=== PATIENT | female | born 1970 | race Caucasian/White ===

== ENCOUNTER 2016-08-01 13:31 | Emergency (ER) | payer MEDICAID, OTHER ==
[~2016-08-01] VITALS: Ht 157.5 cm; Wt 73.6 kg
[~2016-08-01 13:31] MED LIST: ACET325 PO; CALCTAB80 PO; CENTTAB9 PO; CHOL50006 PO; CIPR250T2 PO; FLUD.1 PO; HYDRO10 PO; ONDA4TAB7 PO; PROT40TA PO
[2016-08-01 13:34] VITALS: BP 106/54; PULSE 81; RESP 16; TEMP 98; O2SAT 92
[2016-08-01 14:08] LABS: BASOPHIL # 0.3 TH/MM3 (0-0.2); BASOPHIL % 3.1 % (0.0-2.0); EOSINOPHIL # 0.4 TH/MM3 (0-0.4); EOSINOPHIL % 4.3 % (0.0-4.0); HEMATOCRIT 39.6 % (35.0-46.0); HEMO FLAGS DIFF FINAL; LYMPH % 30.3 % (9.0-44.0); LYMPHOCYTE # 2.6 TH/MM3 (1.0-4.8); MEAN CELL VOLUME 92.1 FL (80.0-100.0); MEAN CORPUSCULAR HEMOGLOBIN 29.9 PG (27.0-34.0); MEAN CORPUSCULAR HGB CONC 32.5 % (32.0-36.0); MONO % 4.4 % (0.0-8.0); NEUT % 57.9 % (16.0-70.0); PLATELET COUNT 267 TH/MM3 (150-450); RED CELL DISTRIBUTION WIDTH 16.9 % (11.6-17.2); WHITE BLOOD COUNT 8.6 TH/MM3 (4.0-11.0)
[2016-08-01 14:21] LABS: BLOOD, URINE TRACE (NEG); COMMENT (UR) CULTURE INDICATED; CULTURE IF INDICATED CULTURE INDICATED; GLUCOSE,URINE NEG (NEG); KETONE, URINE 10 mg/dL (NEG); MUCUS URINE MANY /lpf (OCC); NITRITE,URINE NEG (NEG); PH, URINE 5.5 (5.0-8.5); SQUAMOUS EPITHELIAL CELL URINE 29 /hpf (0-5); TRANSITIONAL EPI CELLS, URINE 1 /hpf; URINE COLOR BROWN (YELLW/STRAW)
--- NOTE | 2016-08-01 14:27 | PD ---
HPI Chief Complaint: Abdominal Pain Time Seen by Provider: 14:18 Travel History International Travel<30 days: No Contact w/Intl Traveler<30days: No Traveled to known affect area: No History of Present Illness HPI This is a 45-year-old female who presents for evaluation of generalized weakness and nausea. Symptoms have been ongoing for 2 months. She reports that she saw her primary care physician Dr. Lawrence and on July 10 she was prescribed a seven-day course of Cipro. She used it for about 4 days and she has 5 pills left. She quit using it because she says that it was making her more nauseous. She now presents because the symptoms have been worsening. She also notes that her urine is orange in color. She was also prescribed azo but she reports that her urine was orange in color prior to using this medication. She does endorse occasional pelvic and epigastric discomfort as well. Denies vomiting, fevers or chills, flank pain, cough or congestion, rash, diarrhea or constipation. No other complaints. PFSH Past Medical History Medical History: Denies Significant Hx Asthma: No Blood Disorders: No Heart Rhythm Problems: Yes Cancer: No Cardiovascular Problems: No High Cholesterol: Yes Chemotherapy: No Chest Pain: No Congestive Heart Failure: No COPD: No Endocrine: Yes GERD: No Genitourinary: No Hepatitis: No Hiatal Hernia: No Hypertension: Yes Immune Disorder: No Kidney Stones: No Musculoskeletal: Yes Neurologic: Yes Psychiatric: No Reproductive: Yes Respiratory: No Myocardial Infarction: Yes Radiation Therapy: No Sleep Apnea: No Thyroid Disease: Yes Ulcer: No ?: Not Past Surgical History Appendectomy: Yes Body Medical Devices: NONE Cholecystectomy: No Gynecologic Surgery: Yes (HYSTERECTOMY 11 YRS AGO.) Hysterectomy: Yes Other Surgery: Yes Social History Alcohol Use: No Tobacco Use: No Substance Use: No Allergies-Medications (Allergen,Severity, Reaction): Coded Allergies: No Known Allergies (Verified , 08/01/16) Reported Meds & Prescriptions Reported Meds & Active Scripts Active Reported Levothyroxine (Levothyroxine Sodium) 25 Mcg Tab 25 Mcg PO DAILY Cortef (Hydrocortisone) 20 Mg Tab 20 Mg PO DAILY Take with food to decrease GI upset Review of Systems Except as stated in HPI: all other systems reviewed are Neg Physical Exam Narrative GENERAL: Well-developed well-nourished female in no acute distress SKIN: Warm and dry. HEAD: Atraumatic. Normocephalic. EYES: Pupils equal and round. No scleral icterus. No injection or drainage. ENT: No nasal bleeding or discharge. Mucous membranes pink and moist. NECK: Trachea midline. No JVD. CARDIOVASCULAR: Regular rate and rhythm. No murmur appreciated. RESPIRATORY: No accessory muscle use. Clear to auscultation. Breath sounds equal bilaterally. GASTROINTESTINAL: Abdomen soft, mild suprapubic and epigastric tenderness to palpation without guarding. Data Data Last Documented VS Vital Signs Date Time Temp Pulse Resp B/P Pulse Ox O2 Delivery O2 Flow Rate FiO2 08/01/16 13:34 98.0 81 16 106/54 92 Room Air Orders Complete Blood Count With Diff (08/01/16 13:37) Comprehensive Metabolic Panel (08/01/16 13:37) Urinalysis - C+S If Indicated (08/01/16 13:37) Iv Access Insert/Monitor (08/01/16 13:37) Lipase (08/01/16 13:37) Urine Culture (08/01/16 13:52) Ed Poc Ultrasound (08/01/16 ) Us Abdomen Gallbladder (08/01/16 ) Ceftriaxone Inj (Rocephin Inj) (08/01/16 16:15) Sodium Chlor 0.9% 1000 Ml Inj (Ns 1000 M (08/01/16 16:15) Ondansetron Inj (Zofran Inj) (08/01/16 16:15) Labs Laboratory Tests Test 08/01/16 08/01/16 13:52 13:53 Urine Color BROWN Urine Turbidity CLOUDY Urine pH 5.5 Urine Specific [place] 1.025 Urine Protein 100 mg/dL Urine Glucose (UA) NEG mg/dL Urine Ketones 10 mg/dL Urine Occult Blood TRACE Urine Nitrite NEG Urine Bilirubin NEG Urine Urobilinogen 4.0 MG/DL Urine Leukocyte Esterase LARGE Urine RBC 24 /hpf Urine WBC /hpf Urine Squamous Epithelial 29 /hpf Cells Urine Transitional Epithelial 1 /hpf Cells Urine Amorphous Sediment FEW Urine Mucus MANY /lpf Microscopic Urinalysis Comment CULTURE INDICATED White Blood Count 8.6 TH/MM3 Red Blood Count 4.30 MIL/MM3 Hemoglobin 12.9 GM/DL Hematocrit 39.6 % Mean Corpuscular Volume 92.1 FL Mean Corpuscular Hemoglobin 29.9 PG Mean Corpuscular Hemoglobin 32.5 % Concent Red Cell Distribution Width 16.9 % Platelet Count 267 TH/MM3 Mean Platelet Volume 8.8 FL Neutrophils (%) (Auto) 57.9 % Lymphocytes (%) (Auto) 30.3 % Monocytes (%) (Auto) 4.4 % Eosinophils (%) (Auto) 4.3 % Basophils (%) (Auto) 3.1 % Neutrophils # (Auto) 5.0 TH/MM3 Lymphocytes # (Auto) 2.6 TH/MM3 Monocytes # (Auto) 0.4 TH/MM3 Eosinophils # (Auto) 0.4 TH/MM3 Basophils # (Auto) 0.3 TH/MM3 CBC Comment DIFF FINAL Differential Comment Sodium Level 130 MEQ/L Potassium Level 3.3 MEQ/L Chloride Level 93 MEQ/L Carbon Dioxide Level 27.2 MEQ/L Anion Gap 10 MEQ/L Blood Urea Nitrogen 6 MG/DL Creatinine 0.98 MG/DL Estimat Glomerular Filtration 62 ML/MIN Rate Random Glucose 128 MG/DL Calcium Level 8.5 MG/DL Total Bilirubin 1.4 MG/DL Aspartate Amino Transf 123 U/L (AST/SGOT) Alanine Aminotransferase 41 U/L (ALT/SGPT) Alkaline Phosphatase 305 U/L Total Protein 7.6 GM/DL Albumin 3.5 GM/DL Lipase 85 U/L [facility] Medical Decision Making Medical Screen Exam Complete: Yes Emergency Medical Condition: Yes Medical Record Reviewed: Yes Differential Diagnosis Dehydration, electrolyte abnormality, medication side effect, UTI, pancreatitis Narrative Course 45-year-old female presents with 2 months of generalized weakness and nausea. The patient was initially seen in triage. She will be moved to a medical bed and one becomes available. Judson Toledo Aug 01, 2016 14:27
[2016-08-01 14:30] LABS: ANION GAP 10 MEQ/L (5-15); AST (GOT) 123 U/L (15-37); BICARBONATE 27.2 MEQ/L (21.0-32.0); BLOOD UREA NITROGEN 6 MG/DL (7-18); CHLORIDE 93 MEQ/L (98-107); GLOMERULAR FILTRATION RATE 62 ML/MIN (>89); POTASSIUM 3.3 MEQ/L (3.5-5.1); SODIUM (NA) 130 MEQ/L (136-145)
[2016-08-01 14:34] LABS: ALKALINE PHOSPHATASE 305 U/L (45-117); ALT (GPT) 41 U/L (10-53); TOTAL BILIRUBIN ADULT 1.4 MG/DL (0.2-1.0)
--- NOTE | 2016-08-01 15:56 | PD ---
Data Data Last Documented VS Vital Signs Date Time Temp Pulse Resp B/P Pulse Ox O2 Delivery O2 Flow Rate FiO2 08/01/16 13:34 98.0 81 16 106/54 92 Room Air Orders Complete Blood Count With Diff (08/01/16 13:37) Comprehensive Metabolic Panel (08/01/16 13:37) Urinalysis - C+S If Indicated (08/01/16 13:37) Iv Access Insert/Monitor (08/01/16 13:37) Lipase (08/01/16 13:37) Urine Culture (08/01/16 13:52) Ed Poc Ultrasound (08/01/16 ) Us Abdomen Gallbladder (08/01/16 ) Ceftriaxone Inj (Rocephin Inj) (08/01/16 16:15) Sodium Chlor 0.9% 1000 Ml Inj (Ns 1000 M (08/01/16 16:15) Ondansetron Inj (Zofran Inj) (08/01/16 16:15) Labs Laboratory Tests Test 08/01/16 08/01/16 13:52 13:53 Urine Color BROWN Urine Turbidity CLOUDY Urine pH 5.5 Urine Specific [place] 1.025 Urine Protein 100 mg/dL Urine Glucose (UA) NEG mg/dL Urine Ketones 10 mg/dL Urine Occult Blood TRACE Urine Nitrite NEG Urine Bilirubin NEG Urine Urobilinogen 4.0 MG/DL Urine Leukocyte Esterase LARGE Urine RBC 24 /hpf Urine WBC /hpf Urine Squamous Epithelial 29 /hpf Cells Urine Transitional Epithelial 1 /hpf Cells Urine Amorphous Sediment FEW Urine Mucus MANY /lpf Microscopic Urinalysis Comment CULTURE INDICATED White Blood Count 8.6 TH/MM3 Red Blood Count 4.30 MIL/MM3 Hemoglobin 12.9 GM/DL Hematocrit 39.6 % Mean Corpuscular Volume 92.1 FL Mean Corpuscular Hemoglobin 29.9 PG Mean Corpuscular Hemoglobin 32.5 % Concent Red Cell Distribution Width 16.9 % Platelet Count 267 TH/MM3 Mean Platelet Volume 8.8 FL Neutrophils (%) (Auto) 57.9 % Lymphocytes (%) (Auto) 30.3 % Monocytes (%) (Auto) 4.4 % Eosinophils (%) (Auto) 4.3 % Basophils (%) (Auto) 3.1 % Neutrophils # (Auto) 5.0 TH/MM3 Lymphocytes # (Auto) 2.6 TH/MM3 Monocytes # (Auto) 0.4 TH/MM3 Eosinophils # (Auto) 0.4 TH/MM3 Basophils # (Auto) 0.3 TH/MM3 CBC Comment DIFF FINAL Differential Comment Sodium Level 130 MEQ/L Potassium Level 3.3 MEQ/L Chloride Level 93 MEQ/L Carbon Dioxide Level 27.2 MEQ/L Anion Gap 10 MEQ/L Blood Urea Nitrogen 6 MG/DL Creatinine 0.98 MG/DL Estimat Glomerular Filtration 62 ML/MIN Rate Random Glucose 128 MG/DL Calcium Level 8.5 MG/DL Total Bilirubin 1.4 MG/DL Aspartate Amino Transf 123 U/L (AST/SGOT) Alanine Aminotransferase 41 U/L (ALT/SGPT) Alkaline Phosphatase 305 U/L Total Protein 7.6 GM/DL Albumin 3.5 GM/DL Lipase 85 U/L [facility] Supervised Visit with BRAD: Yes Interpretation(s) No leukocytosis Mild hyponatremia Chronic transaminitis, patient has been told in the past that she has liver problems Differential Diagnosis Urinary tract infection, pyelonephritis, cholecystitis, electrolyte abnormality , dehydration Narrative Course This is a 45-year-old female who presents to the emergency department with malaise, nausea and vomiting and fevers that have been going on for 1 month. She has symptoms of urinary tract infection. She's had persistent UTIs in the past. Her doctor put her on Cipro but she couldn't tolerate it because of the side effects. Here her labs demonstrate some dehydration. She has some worsening abnormal liver function tests and she was tender in the right upper quadrant. I performed a right upper quadrant ultrasound the bedside and I had her gallbladder wall appeared thick and I was concerned for some possible pericholecystic fluid. I obtained a formal ultrasound. Case was signed out to Dr. Thompson. If the patient's ultrasound is reassuring at think she can be discharged on Keflex. Procedures Procedure Narrative Right upper quadrant ultrasound: Gallbladder wall thickness was 0.46 L, common bile duct was 0.41 cm, pericholecystic fluid is appreciated and patient has tenderness with exam Shyla Ibrahim MD Aug 01, 2016 15:56
[2016-08-01] MEDS ORDERED: SODIUM CHLOR 0.9% 1000 ML INJ 1,000 ML IV SCH (16:15)
[2016-08-01] MEDS ORDERED: cefTRIAXone INJ 1,000 MG in SODIUM CHLORIDE 0.9% INJ 100 ML IV ONE (16:15)
[2016-08-01] MEDS ORDERED: ONDANSETRON HCL 4 MG/2 ML VIAL IV ONE (16:15)
[2016-08-01] MEDS ORDERED: CORT20TA PO (16:25)
[2016-08-01] MEDS ORDERED: LEVO25TA4 PO (16:25)
[2016-08-01 17:25] VITALS: BP 110/50; PULSE 80; RESP 20; O2SAT 95
--- NOTE | 2016-08-01 18:16 | PD ---
Physical Exam Date Seen by Provider: Aug 01, 2016 Data Data Last Documented VS Vital Signs Date Time Temp Pulse Resp B/P Pulse Ox O2 Delivery O2 Flow Rate FiO2 08/01/16 20:38 74 16 112/65 95 08/01/16 13:34 98.0 Room Air Orders Complete Blood Count With Diff (08/01/16 13:37) Comprehensive Metabolic Panel (08/01/16 13:37) Urinalysis - C+S If Indicated (08/01/16 13:37) Iv Access Insert/Monitor (08/01/16 13:37) Lipase (08/01/16 13:37) Urine Culture (08/01/16 13:52) Ed Poc Ultrasound (08/01/16 ) Us Abdomen Gallbladder (08/01/16 ) Ceftriaxone Inj (Rocephin Inj) (08/01/16 16:15) Sodium Chlor 0.9% 1000 Ml Inj (Ns 1000 M (08/01/16 16:15) Ondansetron Inj (Zofran Inj) (08/01/16 16:15) Labs Laboratory Tests Test 08/01/16 08/01/16 13:52 13:53 Urine Color BROWN Urine Turbidity CLOUDY Urine pH 5.5 Urine Specific [place] 1.025 Urine Protein 100 mg/dL Urine Glucose (UA) NEG mg/dL Urine Ketones 10 mg/dL Urine Occult Blood TRACE Urine Nitrite NEG Urine Bilirubin NEG Urine Urobilinogen 4.0 MG/DL Urine Leukocyte Esterase LARGE Urine RBC 24 /hpf Urine WBC /hpf Urine Squamous Epithelial 29 /hpf Cells Urine Transitional Epithelial 1 /hpf Cells Urine Amorphous Sediment FEW Urine Mucus MANY /lpf Microscopic Urinalysis Comment CULTURE INDICATED White Blood Count 8.6 TH/MM3 Red Blood Count 4.30 MIL/MM3 Hemoglobin 12.9 GM/DL Hematocrit 39.6 % Mean Corpuscular Volume 92.1 FL Mean Corpuscular Hemoglobin 29.9 PG Mean Corpuscular Hemoglobin 32.5 % Concent Red Cell Distribution Width 16.9 % Platelet Count 267 TH/MM3 Mean Platelet Volume 8.8 FL Neutrophils (%) (Auto) 57.9 % Lymphocytes (%) (Auto) 30.3 % Monocytes (%) (Auto) 4.4 % Eosinophils (%) (Auto) 4.3 % Basophils (%) (Auto) 3.1 % Neutrophils # (Auto) 5.0 TH/MM3 Lymphocytes # (Auto) 2.6 TH/MM3 Monocytes # (Auto) 0.4 TH/MM3 Eosinophils # (Auto) 0.4 TH/MM3 Basophils # (Auto) 0.3 TH/MM3 CBC Comment DIFF FINAL Differential Comment Sodium Level 130 MEQ/L Potassium Level 3.3 MEQ/L Chloride Level 93 MEQ/L Carbon Dioxide Level 27.2 MEQ/L Anion Gap 10 MEQ/L Blood Urea Nitrogen 6 MG/DL Creatinine 0.98 MG/DL Estimat Glomerular Filtration 62 ML/MIN Rate Random Glucose 128 MG/DL Calcium Level 8.5 MG/DL Total Bilirubin 1.4 MG/DL Aspartate Amino Transf 123 U/L (AST/SGOT) Alanine Aminotransferase 41 U/L (ALT/SGPT) Alkaline Phosphatase 305 U/L Total Protein 7.6 GM/DL Albumin 3.5 GM/DL Lipase 85 U/L [facility] Medical Record Reviewed: Yes Supervised Visit with BRAD: Yes Interpretation(s) Vital Signs Date Time Temp Pulse Resp B/P Pulse Ox O2 Delivery O2 Flow Rate FiO2 08/01/16 13:34 98.0 81 16 106/54 92 Room Air Laboratory Tests Test 08/01/16 08/01/16 13:52 13:53 Urine Color BROWN (YELLW/STRAW) Urine Turbidity CLOUDY (CLEAR) Urine pH 5.5 (5.0-8.5) Urine Specific [place] 1.025 (1.002-1.035) Urine Protein 100 mg/dL (NEG-TRACE) Urine Glucose (UA) NEG mg/dL (NEG) Urine Ketones 10 mg/dL (NEG) Urine Occult Blood TRACE (NEG) Urine Nitrite NEG (NEG) Urine Bilirubin NEG (NEG) Urine Urobilinogen 4.0 MG/DL (LESS THAN 2.0) Urine Leukocyte Esterase LARGE (NEG) Urine RBC 24 /hpf (0-3) Urine WBC /hpf (0-5) Urine Squamous Epithelial 29 /hpf (0-5) Cells Urine Transitional Epithelial 1 /hpf (NONE) Cells Urine Amorphous Sediment FEW Urine Mucus MANY /lpf (OCC) Microscopic Urinalysis Comment CULTURE INDICATED White Blood Count 8.6 TH/MM3 (4.0-11.0) Red Blood Count 4.30 MIL/MM3 (4.00-5.30) Hemoglobin 12.9 GM/DL (11.6-15.3) Hematocrit 39.6 % (35.0-46.0) Mean Corpuscular Volume 92.1 FL (80.0-100.0) Mean Corpuscular Hemoglobin 29.9 PG (27.0-34.0) Mean Corpuscular Hemoglobin 32.5 % Concent (32.0-36.0) Red Cell Distribution Width 16.9 % (11.6-17.2) Platelet Count 267 TH/MM3 (150-450) Mean Platelet Volume 8.8 FL (7.0-11.0) Neutrophils (%) (Auto) 57.9 % (16.0-70.0) Lymphocytes (%) (Auto) 30.3 % (9.0-44.0) Monocytes (%) (Auto) 4.4 % (0.0-8.0) Eosinophils (%) (Auto) 4.3 % (0.0-4.0) Basophils (%) (Auto) 3.1 % (0.0-2.0) Neutrophils # (Auto) 5.0 TH/MM3 (1.8-7.7) Lymphocytes # (Auto) 2.6 TH/MM3 (1.0-4.8) Monocytes # (Auto) 0.4 TH/MM3 (0-0.9) Eosinophils # (Auto) 0.4 TH/MM3 (0-0.4) Basophils # (Auto) 0.3 TH/MM3 (0-0.2) CBC Comment DIFF FINAL Differential Comment Sodium Level 130 MEQ/L (136-145) Potassium Level 3.3 MEQ/L (3.5-5.1) Chloride Level 93 MEQ/L (98-107) Carbon Dioxide Level 27.2 MEQ/L (21.0-32.0) Anion Gap 10 MEQ/L (5-15) Blood Urea Nitrogen 6 MG/DL (7-18) Creatinine 0.98 MG/DL (0.50-1.00) Estimat Glomerular Filtration 62 ML/MIN (>89) Rate Random Glucose 128 MG/DL (74-106) Calcium Level 8.5 MG/DL (8.5-10.1) Total Bilirubin 1.4 MG/DL (0.2-1.0) Aspartate Amino Transf 123 U/L (15-37) (AST/SGOT) Alanine Aminotransferase 41 U/L (10-53) (ALT/SGPT) Alkaline Phosphatase 305 U/L (45-117) Total Protein 7.6 GM/DL (6.4-8.2) Albumin 3.5 GM/DL (3.4-5.0) Lipase 85 U/L (73-393) Microbiology Date/Time Procedure Status Source Growth 08/01/16 13:52 Urine Culture Received Urine Clean Catch Pending Differential Diagnosis Acute cholecystitis, pyelonephritis, UTI, dehydration, hepatitis, transaminitis Narrative Course Patient was signed out to me by Dr. Ibrahim at change of shift. Please see previous providers workup as well as history of present illness for full narrative course. I was asked to follow-up with patient's right upper quadrant ultrasound as there was concerns for possible pericholecystic fluid on patient' s bedside ultrasound. Patient is a 45-year-old female who presents to emergency room with complaints of nausea vomiting and urinary tract symptoms which have been ongoing for the past month. Patient reports that she has been on ciprofloxacin for her urinary tract infections but up taking them because she could not tolerate the side effects of the medications. Patient reports that she has increased pain to the right upper abdomen, patient here for evaluation of right upper quadrant pain. Patient does have transaminitis on her lab work, right upper quadrant ultrasound pending at this time. CBC & BMP Diagram 08/01/16 13:53 Last Impressions Gall Bladder Ultrasound 08/01/16 0000 Signed Impressions: Service Date/Time: Saturday, August 01, 2016 17:36 - CONCLUSION: 1. The liver is slightly echogenic which maybe due to fatty infiltration and or hepatocellular dysfunction. 2. Sludge within the gallbladder and nonspecific thickening of the gallbladder wall. Dustin Mcgraw MD Patient reevaluated, patient reports that she is feeling much better. Patient does not Have any abdominal pain at this time. I did review all the labs and all the studies as well as all labs and all findings with patient and her son in detail. Gallbladder ultrasound with sludge within the gallbladder and nonspecific thickening of the gallbladder wall. I did review with patient possibility of acute cholecystitis, patient reports that she has no pain at this time. Patient reports that she does feel better and would like to be discharged. I discussed need for her to follow-up with Gen. surgery as outpatient. Signs and symptoms of when to return to the emergency room including fevers and chills and right upper quadrant pain was discussed with patient in detail. Patient will return to the emergency room should she develop any of the symptoms. Patient was given a copy of her lab work and US reports at discharge Diagnosis Primary Impression: Abdominal pain Qualified Code: R10.84 - Generalized abdominal pain Additional Impressions: Transaminitis UTI (urinary tract infection) Qualified Code: N30.01 - Acute cystitis with hematuria Hypokalemia Hyponatremia Referrals: Sidney Starr MD Patient Instructions: General Instructions Additional Instruction: Please provide patient with a copy of her lab work and ultrasound report at discharge Please return to emergency room should he develop any fevers, chills or return of abdominal pain. Please follow-up with cultures from today Please call your primary care doctor for earliest follow-up Please call your general surgeon first thing in the morning for earliest follow- up Med/Other Pt SpecificInfo: Prescription(s) given Scripts Cephalexin (Keflex)500 Mg [id number] Mg PO Q6H 7 Days Ref 0 Prov:Isidra Thompson DO 08/01/16 Disposition: 01 DISCHARGE HOME Condition: Stable Isidra Thompson DO Aug 01, 2016 18:16
--- NOTE | 2016-08-01 20:07 | RADRPT ---
EXAM DATE/TIME: 08/01/2016 17:36 [facility] COMPARISON: No previous studies available for comparison. INDICATIONS : Right upper quadrant pain. MEDICAL HISTORY : Hypercholesterolemia. Hypertension. Thyroid disease. Head trauma. Heart attack. Irregular heartbeat . Jaundice. Measles. Blood transfusion. SURGICAL HISTORY : Hysterectomy. Appendectomy. Right ankle surgery. ENCOUNTER: Initial ACUITY: 1 day PAIN SCORE: 4/10 LOCATION: Right upper quadrant MEASUREMENTS: LIVER: 21.1 cm length COMMON DUCT: 4 mm RIGHT KIDNEY: 11.4 x 5.4 x 4.6 cm FINDINGS: The liver is slightly echogenic which maybe due to fatty infiltration and or hepatocellular dysfuncti on. The gallbladder has sludge within it without definite stones and slight gallbladder wall thickeni ng measuring 6-7 mm with slight pericholecystic fluid. The visualized head of the pancreas, and righ t kidney appear grossly intact for technique. CONCLUSION: 1. The liver is slightly echogenic which maybe due to fatty infiltration and or hepatocellular dysfun ction. 2. Sludge within the gallbladder and nonspecific thickening of the gallbladder wall. Dustin Mcgraw MD on August 01, 2016 at 20:04 Board Certified Radiologist. This report was verified electronically.
[2016-08-01 20:38] VITALS: BP 112/65
[2016-08-01] MEDS ORDERED: CEPH-460 PO (20:50)
== END 2016-08-01 21:05 | disposition home or self-care (01) ==
LOC: NEPA 13:31
DX: R10.9 Unspecified abdominal pain (principal); R74.0 Nonspecific elevation of levels of transaminase and lactic acid dehydrogenase [LDH]; N39.0 Urinary tract infection, site not specified; E87.6 Hypokalemia; E87.1 Hypo-osmolality and hyponatremia; B96.89 Other specified bacterial agents as the cause of diseases classified elsewhere; I10 Essential (primary) hypertension; I25.2 Old myocardial infarction
CPT/HCPCS: 76705; 80053; 81001; 83690; 85025; 87086; 96374; 96375; 99284; J0696; J2405; J7030

== ENCOUNTER 2016-08-25 13:29 | Inpatient (IN) | payer OTHER ==
[~2016-08-25] VITALS: Ht 157.5 cm; Wt 79.0 kg
[2016-08-25] VITALS (10 sets, daily range): BP systolic 91–115; BP diastolic 50–60; PULSE 78–90; RESP 17–28; TEMP 98.2–98.6; O2SAT 84–99
[~2016-08-25 13:29] MED LIST changes: -ACET325 PO; -CALCTAB80 PO; -CENTTAB9 PO; +CEPH-460 PO; -CHOL50006 PO; -CIPR250T2 PO; +CORT20TA PO; -FLUD.1 PO; -HYDRO10 PO; +LEVO25TA4 PO; -ONDA4TAB7 PO; -PROT40TA PO
[2016-08-25] MEDS ORDERED: RESP: ALBUTEROL 2.5 MG/IPRATROPIUM 0.5 MG NEB (SCH) INH (14:00)
[2016-08-25] MEDS ORDERED: SODIUM CHLORIDE 0.9% FLUSH 10 ML FLUSH IVF PRN (14:00)
--- NOTE | 2016-08-25 14:03 | PD ---
HPI Chief Complaint: Dizziness Time Seen by Provider: 14:03 Travel History International Travel<30 days: No Contact w/Intl Traveler<30days: No Traveled to known affect area: No History of Present Illness HPI 45 year old female presents to the emergency department for evaluation of vomiting, dizziness x 2 days. She states she had a urinary tract infection one month ago and was treated with antibiotics, but her symptoms remain including dysuria, urinary frequency, urinary urgency. She does report a cough for approximately 1-2 weeks and associated shortness of breath. She denies any chest pain. She denies any vomiting today. She does report decreased appetite. She denies any recent surgery/travel, no hemoptysis, no history of DVT/PE, no edema. She denies any tobacco use. She states she was taking hydrocortisone for "gland issues", but is done with this. She only takes levothyroxine for hypothyroidism. She denies any fevers. Oxygen saturation is 83-84% on room air upon arrival to room. PFSH Past Medical History Asthma: No Blood Disorders: No Heart Rhythm Problems: Yes Cancer: No Cardiovascular Problems: No High Cholesterol: Yes Chemotherapy: No Chest Pain: No Congestive Heart Failure: No COPD: No Endocrine: Yes GERD: No Genitourinary: No Hepatitis: No Hiatal Hernia: No Hypertension: Yes Immune Disorder: No Kidney Stones: No Musculoskeletal: Yes Neurologic: Yes Psychiatric: No Reproductive: Yes Respiratory: No Myocardial Infarction: Yes Radiation Therapy: No Sleep Apnea: No Thyroid Disease: Yes Ulcer: No ?: Not Past Surgical History Appendectomy: Yes Body Medical Devices: NONE Cholecystectomy: No Gynecologic Surgery: Yes (HYSTERECTOMY 11 YRS AGO.) Hysterectomy: Yes Other Surgery: Yes Social History Alcohol Use: No Tobacco Use: No Substance Use: No Allergies-Medications (Allergen,Severity, Reaction): Coded Allergies: No Known Allergies (Verified , 08/25/16) Reported Meds & Prescriptions Reported Meds & Active Scripts Active Reported Levothyroxine (Levothyroxine Sodium) 25 Mcg Tab 25 Mcg PO DAILY Review of Systems Except as stated in HPI: all other systems reviewed are Neg Physical Exam Narrative GENERAL: Well-nourished, well-developed female patient, afebrile. Oxygen saturation is 83-84% on room air. SKIN: Focused skin assessment warm/dry. HEAD: Normocephalic. Atraumatic. EYES: No scleral icterus. No injection or drainage. NECK: Supple, trachea midline. No JVD or lymphadenopathy. CARDIOVASCULAR: Regular rate and rhythm without murmurs, gallops, or rubs. RESPIRATORY: Breath sounds equal bilaterally. No accessory muscle use. Lung sounds diminished with expiratory wheezes noted throughout. GASTROINTESTINAL: Abdomen soft, non-tender, nondistended. No abdominal pain to palpation. MUSCULOSKELETAL: No cyanosis, or edema. BACK: Nontender without obvious deformity. No CVA tenderness. Data Data Last Documented VS Vital Signs Date Time Temp Pulse Resp B/P Pulse Ox O2 Delivery O2 Flow Rate FiO2 08/25/16 15:35 81 24 91/50 98 Nasal Cannula 3 08/25/16 13:56 98.6 Orders Complete Blood Count With Diff (08/25/16 14:00) Basic Metabolic Panel (Bmp) (08/25/16 14:00) Magnesium (Mg) (08/25/16 14:00) Ckmb (Isoenzyme) Profile (08/25/16 14:00) Troponin I (08/25/16 14:00) Urinalysis - C+S If Indicated (08/25/16 14:00) Influenzae A/B Antigen (08/25/16 14:00) Blood Culture (08/25/16 14:00) Iv Access Insert/Monitor (08/25/16 14:00) Electrocardiogram (08/25/16 14:00) Ecg Monitoring (08/25/16 14:00) Oximetry (08/25/16 14:00) Oxygen Administration (08/25/16 14:00) Chest, Single Ap (08/25/16 14:00) Sodium Chloride 0.9% Flush (Ns Flush) (08/25/16 14:00) Albuterol-Ipratropium Neb (Duoneb Neb) (08/25/16 14:00) Lactic Acid Sepsis Protocol (08/25/16 14:00) Methylprednisolone So Succ Inj (Solumedr (08/25/16 14:15) Albuterol-Ipratropium Neb (Duoneb Neb) (08/25/16 14:15) Ct Pulmonary Angiogram (08/25/16 ) CKMB (08/25/16 14:00) CKMB% (08/25/16 14:00) Sodium Chlor 0.9% 1000 Ml Inj (Ns 1000 M (08/25/16 16:00) Iohexol 350 Inj (Omnipaque 350 Inj) (08/25/16 16:24) Urine Culture (08/25/16 15:45) Hepatic Functional Panel (08/25/16 16:50) Ceftriaxone Inj (Rocephin Inj) (08/25/16 17:15) Sodium Chlor 0.9% 1000 Ml Inj (Ns 1000 M (08/25/16 17:15) Labs Laboratory Tests Test 08/25/16 08/25/16 08/25/16 14:00 14:05 15:45 White Blood Count 6.5 TH/MM3 Red Blood Count 4.33 MIL/MM3 Hemoglobin 13.6 GM/DL Hematocrit 39.5 % Mean Corpuscular Volume 91.2 FL Mean Corpuscular Hemoglobin 31.5 PG Mean Corpuscular Hemoglobin 34.5 % Concent Red Cell Distribution Width 17.6 % Platelet Count 241 TH/MM3 Mean Platelet Volume 8.7 FL Neutrophils (%) (Auto) 48.0 % Lymphocytes (%) (Auto) 40.0 % Monocytes (%) (Auto) 4.4 % Eosinophils (%) (Auto) 6.1 % Basophils (%) (Auto) 1.5 % Neutrophils # (Auto) 3.1 TH/MM3 Lymphocytes # (Auto) 2.6 TH/MM3 Monocytes # (Auto) 0.3 TH/MM3 Eosinophils # (Auto) 0.4 TH/MM3 Basophils # (Auto) 0.1 TH/MM3 CBC Comment DIFF FINAL Differential Comment Sodium Level 128 MEQ/L Potassium Level 3.4 MEQ/L Chloride Level 94 MEQ/L Carbon Dioxide Level 24.6 MEQ/L Anion Gap 9 MEQ/L Blood Urea Nitrogen 5 MG/DL Creatinine 1.00 MG/DL Estimat Glomerular Filtration 61 ML/MIN Rate Random Glucose 117 MG/DL Calcium Level 9.0 MG/DL Magnesium Level 2.2 MG/DL Total Creatine Kinase 1509 U/L Creatine Kinase MB 4.7 NG/ML Creatine Kinase MB % 0.3 % Troponin I LESS THAN 0.02 NG/ML Lactic Acid Level 1.2 mmol/L Urine Color ORANGE Urine Turbidity HAZY Urine pH 6.0 Urine Specific Starlight 1.029 Urine Protein 30 mg/dL Urine Glucose (UA) NEG mg/dL Urine Ketones 40 mg/dL Urine Occult Blood NEG Urine Nitrite NEG Urine Bilirubin NEG Urine Urobilinogen 8.0 MG/DL Urine Leukocyte Esterase LARGE Urine RBC 6 /hpf Urine WBC 167 /hpf Urine Squamous Epithelial 3 /hpf Cells Urine Mucus MANY /lpf Microscopic Urinalysis Comment CULTURE INDICATED MDM Medical Decision Making Medical Screen Exam Complete: Yes Emergency Medical Condition: Yes Medical Record Reviewed: Yes Interpretation(s) Last Impressions Chest X-Ray 08/25/16 1400 Signed Impressions: Service Date/Time: Thursday, August 25, 2016 14:42 - CONCLUSION: 1. Minimal basilar atelectasis. No acute findings. Stable sclerotic deformity at the left glenoid. Srinivas Menezes MD CT [facility] - CONCLUSION: 1. Negative for pulmonary embolus. Dependent atelectasis in both lungs. Differential Diagnosis pneumonia vs. electrolyte abnormality vs. ACS vs. PE Narrative Course 45 year old female presents to the emergency department for vomiting, dizziness , cough, shortness of breath. EKG, CBC, BMP, Magnesium, CK, troponin, UA, UPT, lactic acid, blood cultures x 2, influenza are ordered and pending. Patient is given duoneb x3 and solumedrol 125 mg IV. Chest x-ray is ordered and pending. EKG shows SR, HR 72, no acute ST changes. CBC shows no acute abnormality. BMP shows hyponatremia of 128, hypokalemia of 3.4. Magnesium is 2.2. CK is elevated at 1509. Troponin is less than 0.02. Lactic acid is 1.2. UA shows 8.0 Urobilinogen, large leukocyte esterase, 167 WBC. Influenza is negative. Chest x-ray shows minimal basilar atelectasis. No acute findings. Stable sclerotic deformity at the left glenoid. CT pulmonary angiogram is ordered and is negative for PE. Patient is given 2 L NS IV bolus and Rocephin [address] [facility] is paged for admission. Dr. Rinaldi accepted admission. Diagnosis Primary Impression: Hypoxia Additional Impressions: Rhabdomyolysis Qualified Code: M62.82 - Non-traumatic rhabdomyolysis UTI (urinary tract infection) Qualified Code: N30.00 - Acute cystitis without hematuria Admitting Information Admitting Physician Requests: Admit Tavia Burroughs Aug 25, 2016 14:03
[2016-08-25] MEDS ORDERED: methylPREDNISolone SOD SUCC 125 MG/2 ML VIAL IVP ONE (14:15)
[2016-08-25 14:32] LABS: AUTOMATED NEUTROPHIL # 3.1 TH/MM3 (1.8-7.7); BASOPHIL # 0.1 TH/MM3 (0-0.2); BASOPHIL % 1.5 % (0.0-2.0); EOSINOPHIL # 0.4 TH/MM3 (0-0.4); EOSINOPHIL % 6.1 % (0.0-4.0); HEMATOCRIT 39.5 % (35.0-46.0); HEMO FLAGS DIFF FINAL; LYMPHOCYTE # 2.6 TH/MM3 (1.0-4.8); MEAN CELL VOLUME 91.2 FL (80.0-100.0); MEAN CORPUSCULAR HEMOGLOBIN 31.5 PG (27.0-34.0); MEAN CORPUSCULAR HGB CONC 34.5 % (32.0-36.0); MONO % 4.4 % (0.0-8.0); PLATELET COUNT 241 TH/MM3 (150-450); RED BLOOD COUNT 4.33 MIL/MM3 (4.00-5.30); RED CELL DISTRIBUTION WIDTH 17.6 % (11.6-17.2); WHITE BLOOD COUNT 6.5 TH/MM3 (4.0-11.0)
[2016-08-25] MEDS: RESP: ALBUTEROL 2.5 MG/IPRATROPIUM 0.5 MG NEB (SCH) INH (14:43)
--- NOTE | 2016-08-25 15:25 | RADRPT ---
EXAM DATE/TIME: 08/25/2016 14:42 [facility] COMPARISON: CHEST SINGLE AP, June 21, 2015, 21:02. INDICATIONS : Shortness of breath. MEDICAL HISTORY : None. SURGICAL HISTORY : None. ENCOUNTER: Initial ACUITY: 1 day PAIN SCORE: 0/10 LOCATION: chest FINDINGS: A single view of the chest demonstrates the lungs to be symmetrically aerated without evidence of mas s, infiltrate or effusion. Minimal basilar atelectasis. The cardiomediastinal contours are unremarkab le. Osseous structures are intact. CONCLUSION: 1. Minimal basilar atelectasis. No acute findings. Stable sclerotic deformity at the left glenoid. Srinivas Menezes MD on August 25, 2016 at 15:20 Board Certified Radiologist. This report was verified electronically.
[2016-08-25 15:34] LABS: ANION GAP 9 MEQ/L (5-15); BICARBONATE 24.6 MEQ/L (21.0-32.0); BLOOD UREA NITROGEN 5 MG/DL (7-18); CHLORIDE 94 MEQ/L (98-107); GLOMERULAR FILTRATION RATE 61 ML/MIN (>89); MAGNESIUM 2.2 MG/DL (1.5-2.5); POTASSIUM 3.4 MEQ/L (3.5-5.1); SODIUM (NA) 128 MEQ/L (136-145)
[2016-08-25 15:48] LABS: CREATINE KINASE 1509 U/L (26-192)
[2016-08-25 16:00] LABS: CKMB 4.7 NG/ML (0.5-3.6)
[2016-08-25] MEDS ORDERED: SODIUM CHLOR 0.9% 1000 ML INJ 1,000 ML IV ONE ×2 (16:00→17:15)
[2016-08-25] MEDS ORDERED: IOHEXOL 350 MG/ML 10 ML VIAL (for RAD DIAG) IV ONE (16:24)
[2016-08-25 16:35] LABS: BLOOD, URINE NEG (NEG); COMMENT (UR) CULTURE INDICATED; CULTURE IF INDICATED CULTURE INDICATED; GLUCOSE,URINE NEG (NEG); KETONE, URINE 40 mg/dL (NEG); MUCUS URINE MANY /lpf (OCC); NITRITE,URINE NEG (NEG); SQUAMOUS EPITHELIAL CELL URINE 3 /hpf (0-5)
[2016-08-25 16:36] LABS: URINE COLOR ORANGE (YELLW/STRAW)
--- NOTE | 2016-08-25 17:01 | RADRPT ---
EXAM DATE/TIME: 08/25/2016 16:26 [facility] COMPARISON: No previous studies available for comparison. INDICATIONS : Shortness of breath for two days. IV CONTRAST: 70 cc Omnipaque 350 (iohexol) IV RADIATION DOSE: 23.27 CTDIvol (mGy) MEDICAL HISTORY : Hypothyroidism. SURGICAL HISTORY : Hysterectomy. Appendectomy. ENCOUNTER: Initial ACUITY: 1 day PAIN SCALE: 0/10 LOCATION: Bilateral chest TECHNIQUE: Volumetric scanning of the chest was performed using a pulmonary embolism protocol MIP images were re constructed. Using automated exposure control and adjustment of the mA and/or kV according to patien t size, radiation dose was kept as low as reasonably achievable to obtain optimal diagnostic quality images. FINDINGS: No filling defects to suggest pulmonary embolic disease. Dependent atelectasis in both lungs. No effu phuong or pneumothorax. No adenopathy. No incidental note of aberrant right subclavian artery passing r etroesophageal. No acute findings in the upper abdomen. CONCLUSION: 1. Negative for pulmonary embolus. Dependent atelectasis in both lungs. Srinivas Menezes MD on August 25, 2016 at 16:56 Board Certified Radiologist. This report was verified electronically.
[2016-08-25] MEDS ORDERED: cefTRIAXone INJ 1,000 MG in SODIUM CHLORIDE 0.9% INJ 100 ML IV ONE (17:15)
[2016-08-25] MEDS ORDERED: ONDANSETRON HCL 4 MG/2 ML VIAL IVP PRN (17:45)
[2016-08-25] MEDS ORDERED: NALOXONE HCL 0.4 MG/ML AMP IV PRN (17:45)
[2016-08-25] MEDS ORDERED: ACETAMINOPHEN 325 MG TAB PO PRN (17:45)
[2016-08-25] MEDS ORDERED: BISACODYL 10 MG SUPP RECTAL PRN (17:45)
[2016-08-25] MEDS: methylPREDNISolone SOD SUCC 40 MG/1 ML VIAL IV PUSH SCH (17:56)
[2016-08-25] MEDS: SODIUM CHLOR 0.9% 1000 ML INJ 1,000 ML IV SCH ×2 (17:58→21:29)
[2016-08-25] MEDS: POTASSIUM CHLOR 10 MEQ PREMIX 100 ML IV SCH ×2 (18:27→21:28)
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
[2016-08-25 18:55] LABS: INDIRECT BILIRUBIN 0.9 MG/DL (0.0-0.8); TOTAL BILIRUBIN ADULT 1.5 MG/DL (0.2-1.0)
[2016-08-25 19:30] LABS: AMPHETAMINE, URINE NEG (NEG); BARBITURATES, URINE NEG (NEG); COCAINE, URINE NEG (NEG)
[2016-08-25] MEDS: SODIUM CHLORIDE 0.9% FLUSH 10 ML FLUSH IV FLUSH SCH (21:28)
[2016-08-25] MEDS: DOCUSATE SODIUM 100 MG CAP PO SCH (21:28)
[2016-08-25] MEDS: guaiFENesin E.R. 600 MG TAB PO SCH (21:28)
[2016-08-25] MEDS: ENOXAPARIN SODIUM 40 MG/0.4 ML SYRINGE SQ SCH (21:28)
[2016-08-25] MEDS: RESP: ALBUTEROL 2.5 MG/IPRATROPIUM 0.5 MG NEB (SCH) NEB ×2 (21:58→23:28)
[2016-08-25 22:16] LABS: CREATINE KINASE 1388 U/L (26-192)
[2016-08-25 22:29] LABS: CKMB 5.2 NG/ML (0.5-3.6)
[2016-08-26] VITALS (12 sets, daily range): BP systolic 93–136; BP diastolic 51–64; PULSE 74–96; RESP 16–18; TEMP 97.6–98.8; O2SAT 91–97
[2016-08-26] MEDS: methylPREDNISolone SOD SUCC 40 MG/1 ML VIAL IV PUSH SCH ×5 (00:03→23:32)
[2016-08-26] MEDS: SODIUM CHLORIDE 0.9% FLUSH 10 ML FLUSH IV FLUSH PRN ×2 (00:03→06:24)
[2016-08-26] MEDS: POTASSIUM CHLOR 10 MEQ PREMIX 100 ML IV SCH (00:04)
[2016-08-26 02:35] LABS: AUTOMATED NEUTROPHIL # 4.3 TH/MM3 (1.8-7.7); BASOPHIL % 0.6 % (0.0-2.0); EOSINOPHIL % 0.6 % (0.0-4.0); HEMATOCRIT 35.4 % (35.0-46.0); HEMO FLAGS DIFF FINAL; LYMPH % 20.7 % (9.0-44.0); LYMPHOCYTE # 1.2 TH/MM3 (1.0-4.8); MEAN CELL VOLUME 90.8 FL (80.0-100.0); MEAN CORPUSCULAR HEMOGLOBIN 31.1 PG (27.0-34.0); MEAN CORPUSCULAR HGB CONC 34.3 % (32.0-36.0); MONO % 1.1 % (0.0-8.0); PLATELET COUNT 207 TH/MM3 (150-450); RED CELL DISTRIBUTION WIDTH 17.3 % (11.6-17.2); WHITE BLOOD COUNT 5.6 TH/MM3 (4.0-11.0)
[2016-08-26 02:52] LABS: ALT (GPT) 36 U/L (10-53); AST (GOT) 121 U/L (15-37); INTERNATIONAL NORMALIZED RATIO 1.3 RATIO; PROTHROMBIN TIME - PATIENT 15.1 SEC (9.8-11.6)
[2016-08-26 03:06] LABS: ALKALINE PHOSPHATASE 281 U/L (45-117); CREATINE KINASE 1166 U/L (26-192); FREE T4 0.13 NG/DL (0.76-1.46); HDL CHOLESTEROL 14.8 MG/DL (40.0-60.0); INDIRECT BILIRUBIN 0.6 MG/DL (0.0-0.8); LDL CHOLESTEROL 215 MG/DL (0-99); TOTAL BILIRUBIN ADULT 1.3 MG/DL (0.2-1.0)
[2016-08-26 03:19] LABS: CKMB 2.9 NG/ML (0.5-3.6)
[2016-08-26] MEDS: RESP: ALBUTEROL 2.5 MG/IPRATROPIUM 0.5 MG NEB (SCH) NEB ×6 (03:54→23:57)
[2016-08-26] MEDS: SODIUM CHLOR 0.9% 1000 ML INJ 1,000 ML IV SCH ×2 (03:56→23:32)
--- NOTE | 2016-08-26 08:43 | HHI.PR ---
Subjective Remarks This is a pleasant 45 y/o Female with Adrenal Insufficiency, Hypothyroidism, Chronic Steroid Use, who came to ER with worsening fatigue, vomiting and dizziness, recently admitted to the Hospital with Urinary tract infection, cough for the last 2 to 3 weeks, Shortness of breath, on and off chills, no fever, she is followed by [facility], stopped taking her Hydrocortisone x 1 year and was recently re started 2 months ago, unable to refill her prescription for this medicine not taken the medicine for the last 2 weeks, oxygen as needed, 08/26: Stable seen in her bedroom in the presence of nurse Miss Desai CK levels trending down, elevated LDL cholesterol No Nausea, vomit or diarrhea, discussed with her and multiple relatives in the room. has Adrenal Insufficiency, will re start her Home medicines. Objective Vital Signs Date Time Temp Pulse Resp B/P Pulse Ox O2 Delivery O2 Flow Rate FiO2 08/26/16 07:41 93 Nasal Cannula 2.00 08/26/16 04:00 98.0 81 18 96/52 97 08/26/16 03:55 97 Nasal Cannula 2.00 08/26/16 00:00 98.1 91 18 95/54 96 08/25/16 23:32 94 Nasal Cannula 2.00 08/25/16 22:03 93 Nasal Cannula 2.00 08/25/16 20:43 90 08/25/16 20:00 98.2 85 18 115/58 99 08/25/16 19:11 71 21 98 Nasal Cannula 3 08/25/16 18:00 78 18 98 Nasal Cannula 3 08/25/16 15:35 81 24 91/50 98 Nasal Cannula 3 08/25/16 14:48 94 Nasal Cannula 3.00 08/25/16 14:30 78 22 95 Nasal Cannula 3 08/25/16 13:58 84 84 Room Air 08/25/16 13:56 98.6 88 28 107/60 84 Room Air 08/25/16 13:56 98.6 88 28 107/60 84 Room Air 08/25/16 13:50 91 Nasal Cannula 3 08/25/16 13:32 98.6 82 17 112/56 88 Result Diagram: 08/26/16 0213 08/25/16 1400 Imaging Last Impressions Chest X-Ray 08/25/16 1400 Signed Impressions: Service Date/Time: Thursday, August 25, 2016 14:42 - CONCLUSION: 1. Minimal basilar atelectasis. No acute findings. Stable sclerotic deformity at the left glenoid. Srinivas Menezes MD CT Angiography 08/25/16 0000 Signed Impressions: Service Date/Time: Thursday, August 25, 2016 16:26 - CONCLUSION: 1. Negative for pulmonary embolus. Dependent atelectasis in both lungs. Srinivas Menezes MD Procedures No procedures performed. Other Results Laboratory Tests Test 08/25/16 08/25/16 08/25/16 08/26/16 14:00 14:05 15:45 02:13 Sodium Level 128 MEQ/L Potassium Level 3.4 MEQ/L Chloride Level 94 MEQ/L Carbon Dioxide Level 24.6 MEQ/L Anion Gap 9 MEQ/L Blood Urea Nitrogen 5 MG/DL Creatinine 1.00 MG/DL Estimat Glomerular Filtration 61 ML/MIN Rate Random Glucose 117 MG/DL Calcium Level 9.0 MG/DL Magnesium Level 2.2 MG/DL Lactic Acid Level 1.2 mmol/L Urine Color ORANGE Urine Turbidity HAZY Urine pH 6.0 Urine Specific [place] 1.029 Urine Protein 30 mg/dL Urine Glucose (UA) NEG mg/dL Urine Ketones 40 mg/dL Urine Occult Blood NEG Urine Nitrite NEG Urine Bilirubin NEG Urine Urobilinogen 8.0 MG/DL Urine Leukocyte Esterase LARGE Urine RBC 6 /hpf Urine WBC 167 /hpf Urine Squamous Epithelial 3 /hpf Cells Urine Mucus MANY /lpf Microscopic Urinalysis Comment CULTURE INDICATED Urine Opiates Screen NEG Urine Barbiturates Screen NEG Urine Amphetamines Screen NEG Urine Benzodiazepines Screen NEG Urine Cocaine Screen NEG Urine Cannabinoids Screen NEG White Blood Count 5.6 TH/MM3 Red Blood Count 3.90 MIL/MM3 Hemoglobin 12.1 GM/DL Hematocrit 35.4 % Mean Corpuscular Volume 90.8 FL Mean Corpuscular Hemoglobin 31.1 PG Mean Corpuscular Hemoglobin 34.3 % Concent Red Cell Distribution Width 17.3 % Platelet Count 207 TH/MM3 Mean Platelet Volume 8.5 FL Neutrophils (%) (Auto) 77.0 % Lymphocytes (%) (Auto) 20.7 % Monocytes (%) (Auto) 1.1 % Eosinophils (%) (Auto) 0.6 % Basophils (%) (Auto) 0.6 % Neutrophils # (Auto) 4.3 TH/MM3 Lymphocytes # (Auto) 1.2 TH/MM3 Monocytes # (Auto) 0.1 TH/MM3 Eosinophils # (Auto) 0.0 TH/MM3 Basophils # (Auto) 0.0 TH/MM3 CBC Comment DIFF FINAL Differential Comment Prothrombin Time 15.1 SEC Prothromb Time International 1.3 RATIO Ratio Total Bilirubin 1.3 MG/DL Direct Bilirubin 0.7 MG/DL Indirect Bilirubin 0.6 MG/DL Aspartate Amino Transf 121 U/L (AST/SGOT) Alanine Aminotransferase 36 U/L (ALT/SGPT) Alkaline Phosphatase 281 U/L Total Creatine Kinase 1166 U/L Creatine Kinase MB 2.9 NG/ML Creatine Kinase MB % 0.2 % Troponin I LESS THAN 0.02 NG/ML Total Protein 7.2 GM/DL Albumin 3.2 GM/DL Triglycerides Level 165 MG/DL Cholesterol Level 263 MG/DL LDL Cholesterol 215 MG/DL HDL Cholesterol 14.8 MG/DL Cholesterol/HDL Ratio 17.77 RATIO Free Thyroxine 0.13 NG/DL Thyroid Stimulating Hormone 1.520 uIU/ML 3rd Gen Objective Remarks GENERAL: Obesity, rasmussen facies, No acute distress. SKIN: No rashes, ecchymoses or lesions. Warm and dry. HEAD: Atraumatic. Normocephalic. No temporal or scalp tenderness. EYES: Pupils equal round and reactive. No scleral icterus. No injection or drainage. ENT: Nose without bleeding. Throat with slight erythema. Uvula midline. Airway patent. NECK: Trachea midline. No JVD or lymphadenopathy. Supple, nontender, no meningeal signs. CARDIOVASCULAR: Regular rate and rhythm without murmurs, gallops, or rubs. RESPIRATORY: Decreased breath sounds bilateral, no wheezing or crackles. GASTROINTESTINAL: Abdomen soft, non-tender, nondistended. MUSCULOSKELETAL: Extremities without clubbing, cyanosis, or edema. NEUROLOGICAL: Awake and alert. No Focal deficits. Medications and IVs Current Medications Medications (Trade) Dose Ordered Sig/Eliane Route Start Time Stop Time Status Last Admin (NS 1000 ml Inj) 1,000 ml @ 150 mls/hr Q6H40M IV 08/25/16 18:00 08/26/16 03:56 (NS Flush) 2 ml UNSCH PRN IV FLUSH 08/25/16 17:45 08/26/16 06:24 (NS Flush) 2 ml BID IV FLUSH 08/25/16 21:00 08/25/16 21:28 (Tylenol) 650 mg Q4H PRN PO 08/25/16 17:45 (Zofran Inj) 4 mg Q6H PRN IVP 08/25/16 17:45 (Dulcolax Supp) 10 mg DAILY PRN RECTAL 08/25/16 17:45 (Colace) 100 mg Q12H PO 08/25/16 21:00 08/25/16 21:28 (Lovenox Inj) 40 mg Q24H SQ 08/25/16 20:00 08/25/16 21:28 Naloxone HCl 0.4 mg 0.4 mg UNSCH PRN IV 08/25/16 17:45 (Rocephin Inj/NS Inj) 100 ml @ 200 mls/hr Q24H IV 08/26/16 16:00 (SoluMEDROL INJ) 40 mg Q6HR IV PUSH 08/25/16 18:00 08/26/16 06:24 (Mucinex Er) 600 mg BID PO 08/25/16 21:00 08/25/16 21:28 A/P Assessment and Plan 1. Hypoxemic respiratory Failure. CXR showed minimal basilar atelectasis. No acute findings. Stable sclerotic deformity at the left glenoid CT angiogram negative for pulmonary embolus. Dependent atelectasis in both lungs. on Steroids, Antibiotics, Bronchodilator, Mucolytic and incentive spirometry , Oxygen as needed, 2. Urinary tract infection continue Ceftriaxone and following cultures. 3. Rhabdomyolysis continue Hydration CK level 1166 from 1505 4. Adrenal insufficiency to continue Hydrocortisone 20 mg on Solu-Medrol at this time 5. Hyponatremia receiving treatment. 7. Hypothyroidism continue Levothyroxine. DVT prop SCDs Code Status Full code Discussed Condition With Patient and relatives in the room. Discharge Planning Expected by tomorrow. Mayur Connelly MD Aug 26, 2016 08:43 - Solu-Medrol 40 mg IV every 6 hours - Ceftriaxone every 24 hours - DuoNeb's scheduled and when necessary - O2 nasal cannula, keep O2 sat greater than 90% - Guaifenesin when necessary - Monitor respiratory status - Place on telemetry 2. Urinary tract infection - Follow-up microbiology - Ceftriaxone every 24 hours - Encourage fluid hydration by mouth 3. Rhabdomyolysis - IV fluids for hydration - Monitor trend CK 4. Adrenal insufficiency - Previously taking hydrocortisone 20 mg daily, has no refills 2 weeks - On Solu-Medrol right now secondary to basilar atelectasis - Solu-Medrol use might help alleviate adrenal insufficiency and relieve some symptoms including fatigue, nausea, vomiting, electrolyte imbalance 5. Hyponatremia - IV fluids - Check BMP tomorrow 6. Hypokalemia - Potassium replacements - Check BMP tomorrow 7. Hypothyroidism - Check TSH, T4 - Continue levothyroxine dose from home DVT prop SCDs Code Status Full code Discussed Condition With Mayur Connelly MD Aug 26, 2016 08:43
[2016-08-26 10:52] LABS: HEMOGLOBIN A1b 1.6 %; HEMOGLOBIN Ao 85.1 %; HEMOGLOBIN LA1C 2.4 %; HEMOGLOBIN P3 3.5 %
[2016-08-26] MEDS: guaiFENesin E.R. 600 MG TAB PO SCH ×2 (13:00→21:39)
[2016-08-26] MEDS: DOCUSATE SODIUM 100 MG CAP PO SCH ×2 (13:00→21:39)
--- NOTE | 2016-08-26 15:52 | EKG ---
Date Performed: 08/25/2016 Time Performed: 14:13:32 PTAGE: 45 years EKG: Sinus rhythm PROLONGED QT INTERVAL Nonspecific T wave change. When compared shorty previous tracing, QT interval is more Prolonged, and the T wave changes across the precordium slightly More prominant. ABNORMAL ECG PREVIOUS TRACING : 10/15/2013 09.50 DOCTOR: Rom Thorpe Interpretating Date/Time 08/26/2016 15:50:42
[2016-08-26] MEDS: cefTRIAXone INJ 1,000 MG in SODIUM CHLORIDE 0.9% INJ 100 ML IV SCH (19:35)
[2016-08-26] MEDS ORDERED: PRAVASTATIN SOD 40 MG TAB PO SCH (21:00)
[2016-08-26] MEDS: SODIUM CHLORIDE 0.9% FLUSH 10 ML FLUSH IV FLUSH SCH (21:40)
[2016-08-26] MEDS: ENOXAPARIN SODIUM 40 MG/0.4 ML SYRINGE SQ SCH (21:40)
[2016-08-27] VITALS (10 sets, daily range): BP systolic 95–118; BP diastolic 54–66; PULSE 82–95; RESP 16–20; TEMP 97.4–98.3; O2SAT 91–96
[2016-08-27] MEDS: RESP: ALBUTEROL 2.5 MG/IPRATROPIUM 0.5 MG NEB (SCH) NEB ×5 (03:19→20:16)
[2016-08-27] MEDS: methylPREDNISolone SOD SUCC 40 MG/1 ML VIAL IV PUSH SCH ×2 (05:46→12:23)
[2016-08-27] MEDS: SODIUM CHLOR 0.9% 1000 ML INJ 1,000 ML IV SCH ×3 (05:47→17:56)
[2016-08-27 07:43] LABS: BICARBONATE 19.6 MEQ/L (21.0-32.0); MAGNESIUM 2.3 MG/DL (1.5-2.5); POTASSIUM 3.9 MEQ/L (3.5-5.1)
--- NOTE | 2016-08-27 07:49 | HHI.PR ---
Subjective Remarks This is a pleasant 45 y/o Female with Adrenal Insufficiency, Hypothyroidism, Chronic Steroid Use, who came to ER with worsening fatigue, vomiting and dizziness, recently admitted to the Hospital with Urinary tract infection, cough for the last 2 to 3 weeks, Shortness of breath, on and off chills, no fever, she is followed by [facility], stopped taking her Hydrocortisone x 1 year and was recently re started 2 months ago, unable to refill her prescription for this medicine not taken the medicine for the last 2 weeks, oxygen as needed, 08/26: CK levels trending down, High LDL levels, has Adrenal Insufficiency. 08/27: Patient seen in the room, stable walking in her bedroom, no complaint, denies any Nausea, vomit or diarrhea following her laboratory in am tomorrow, she has GI specialist and program development specialist as outpatient, will continue actual management until tomorrow and will follow Laboratory. Objective Vital Signs Date Time Temp Pulse Resp B/P Pulse Ox O2 Delivery O2 Flow Rate FiO2 08/27/16 04:00 97.7 82 16 107/59 95 08/27/16 03:20 93 Nasal Cannula 21 08/27/16 00:00 97.7 83 16 98/54 93 08/26/16 23:58 91 21 08/26/16 21:29 91 21 08/26/16 20:48 87 08/26/16 20:00 97.6 89 16 136/64 95 08/26/16 16:00 97.9 92 16 97/51 95 08/26/16 12:00 97.9 96 16 95/52 94 08/26/16 08:06 98.8 88 18 93/52 95 08/26/16 08:00 74 I/O 08/26/16 08/26/16 08/26/16 08/27/16 08/27/16 08/27/16 07:00 15:00 23:00 07:00 15:00 23:00 Intake Total 1780 ml 1695 ml Balance 1780 ml 1695 ml Intake Oral 480 ml 480 ml IV Total 1300 ml 1215 ml # Voids 5 2 2 # Bowel Movements 0 0 Result Diagram: 08/26/16 0213 08/27/16 0600 Imaging Last Impressions Chest X-Ray 08/25/16 1400 Signed Impressions: Service Date/Time: Thursday, August 25, 2016 14:42 - CONCLUSION: 1. Minimal basilar atelectasis. No acute findings. Stable sclerotic deformity at the left glenoid. Srinivas Menezes MD CT Angiography 08/25/16 0000 Signed Impressions: Service Date/Time: Thursday, August 25, 2016 16:26 - CONCLUSION: 1. Negative for pulmonary embolus. Dependent atelectasis in both lungs. Srinivas Menezes MD Procedures No procedures performed. Other Results Laboratory Tests Test 08/25/16 08/25/16 08/26/16 08/27/16 14:05 15:45 02:13 06:00 Lactic Acid Level 1.2 mmol/L Urine Color ORANGE Urine Turbidity HAZY Urine pH 6.0 Urine Specific [place] 1.029 Urine Protein 30 mg/dL Urine Glucose (UA) NEG mg/dL Urine Ketones 40 mg/dL Urine Occult Blood NEG Urine Nitrite NEG Urine Bilirubin NEG Urine Urobilinogen 8.0 MG/DL Urine Leukocyte Esterase LARGE Urine RBC 6 /hpf Urine WBC 167 /hpf Urine Squamous Epithelial 3 /hpf Cells Urine Mucus MANY /lpf Microscopic Urinalysis Comment CULTURE INDICATED Urine Opiates Screen NEG Urine Barbiturates Screen NEG Urine Amphetamines Screen NEG Urine Benzodiazepines Screen NEG Urine Cocaine Screen NEG Urine Cannabinoids Screen NEG White Blood Count 5.6 TH/MM3 Red Blood Count 3.90 MIL/MM3 Hemoglobin 12.1 GM/DL Hematocrit 35.4 % Mean Corpuscular Volume 90.8 FL Mean Corpuscular Hemoglobin 31.1 PG Mean Corpuscular Hemoglobin 34.3 % Concent Red Cell Distribution Width 17.3 % Platelet Count 207 TH/MM3 Mean Platelet Volume 8.5 FL Neutrophils (%) (Auto) 77.0 % Lymphocytes (%) (Auto) 20.7 % Monocytes (%) (Auto) 1.1 % Eosinophils (%) (Auto) 0.6 % Basophils (%) (Auto) 0.6 % Neutrophils # (Auto) 4.3 TH/MM3 Lymphocytes # (Auto) 1.2 TH/MM3 Monocytes # (Auto) 0.1 TH/MM3 Eosinophils # (Auto) 0.0 TH/MM3 Basophils # (Auto) 0.0 TH/MM3 CBC Comment DIFF FINAL Differential Comment Prothrombin Time 15.1 SEC Prothromb Time International 1.3 RATIO Ratio Hemoglobin A1c 5.8 % Total Bilirubin 1.3 MG/DL Direct Bilirubin 0.7 MG/DL Indirect Bilirubin 0.6 MG/DL Aspartate Amino Transf 121 U/L (AST/SGOT) Alanine Aminotransferase 36 U/L (ALT/SGPT) Alkaline Phosphatase 281 U/L Total Creatine Kinase 1166 U/L Creatine Kinase MB 2.9 NG/ML Creatine Kinase MB % 0.2 % Troponin I LESS THAN 0.02 NG/ML Total Protein 7.2 GM/DL Albumin 3.2 GM/DL Triglycerides Level 165 MG/DL Cholesterol Level 263 MG/DL LDL Cholesterol 215 MG/DL HDL Cholesterol 14.8 MG/DL Cholesterol/HDL Ratio 17.77 RATIO Free Thyroxine 0.13 NG/DL Thyroid Stimulating Hormone 1.520 uIU/ML 3rd Gen Sodium Level 137 MEQ/L Potassium Level 3.9 MEQ/L Chloride Level 109 MEQ/L Carbon Dioxide Level 19.6 MEQ/L Anion Gap 8 MEQ/L Blood Urea Nitrogen 6 MG/DL Creatinine 0.86 MG/DL Estimat Glomerular Filtration 72 ML/MIN Rate Random Glucose 144 MG/DL Calcium Level 8.2 MG/DL Magnesium Level 2.3 MG/DL Objective Remarks GENERAL: Obesity, rasmussen facies, No acute distress. SKIN: No rashes, ecchymoses or lesions. Warm and dry. HEAD: Atraumatic. Normocephalic. No temporal or scalp tenderness. EYES: Pupils equal round and reactive. No scleral icterus. No injection or drainage. ENT: Nose without bleeding. Throat with slight erythema. Uvula midline. Airway patent. NECK: Trachea midline. No JVD or lymphadenopathy. Supple, nontender, no meningeal signs. CARDIOVASCULAR: Regular rate and rhythm without murmurs, gallops, or rubs. RESPIRATORY: Decreased breath sounds bilateral, no wheezing or crackles. GASTROINTESTINAL: Abdomen soft, non-tender, nondistended. MUSCULOSKELETAL: Extremities without clubbing, cyanosis, or edema. NEUROLOGICAL: Awake and alert. No Focal deficits. Medications and IVs Current Medications Medications (Trade) Dose Ordered Sig/Eliane Route Start Time Stop Time Status Last Admin (NS 1000 ml Inj) 1,000 ml @ 150 mls/hr Q6H40M IV 08/25/16 18:00 08/27/16 05:47 (NS Flush) 2 ml UNSCH PRN IV FLUSH 08/25/16 17:45 08/26/16 06:24 (NS Flush) 2 ml BID IV FLUSH 08/25/16 21:00 08/26/16 21:40 (Tylenol) 650 mg Q4H PRN PO 08/25/16 17:45 (Zofran Inj) 4 mg Q6H PRN IVP 08/25/16 17:45 (Dulcolax Supp) 10 mg DAILY PRN RECTAL 08/25/16 17:45 (Colace) 100 mg Q12H PO 08/25/16 21:00 08/26/16 21:39 (Lovenox Inj) 40 mg Q24H SQ 08/25/16 20:00 08/26/16 21:40 Naloxone HCl 0.4 mg 0.4 mg UNSCH PRN IV 08/25/16 17:45 (Rocephin Inj/NS Inj) 100 ml @ 200 mls/hr Q24H IV 08/26/16 16:00 08/26/16 19:35 (SoluMEDROL INJ) 40 mg Q6HR IV PUSH 08/25/16 18:00 08/27/16 05:46 (Mucinex Er) 600 mg BID PO 08/25/16 21:00 08/26/16 21:39 A/P Assessment and Plan 1. Hypoxemic respiratory Failure. CXR showed minimal basilar atelectasis. No acute findings. Stable sclerotic deformity at the left glenoid CT angiogram negative for pulmonary embolus. Dependent atelectasis in both lungs. on Steroids, Antibiotics, Bronchodilator, Mucolytic and incentive spirometry , Oxygen as needed, 2. Urinary tract infection continue Ceftriaxone and following cultures. 3. Rhabdomyolysis continue Hydration CK level improving, follow in am tomorrow 4. Adrenal insufficiency to continue Hydrocortisone 20 mg discontinue Solu- Medrol 5. Hyponatremia Improved. 7. Hypothyroidism continue Levothyroxine. DVT prop SCDs Code Status Full code Discussed Condition With Patient. Discharge Planning Expected by tomorrow. Mayur Connelly MD Aug 27, 2016 07:49
[2016-08-27] MEDS: guaiFENesin E.R. 600 MG TAB PO SCH ×2 (09:00→21:08)
[2016-08-27] MEDS: DOCUSATE SODIUM 100 MG CAP PO SCH ×2 (09:00→21:07)
[2016-08-27] MEDS: SODIUM CHLORIDE 0.9% FLUSH 10 ML FLUSH IV FLUSH SCH ×2 (09:00→21:00)
--- NOTE | 2016-08-27 10:40 | RADRPT ---
EXAM DATE/TIME: 08/27/2016 09:03 [facility] COMPARISON: CT PULMONARY ANGIOGRAM, August 25, 2016, 16:26. US ABDOMEN - GALLBLADDER, August 01, 2016, 17:36. INDICATIONS : Increased lab values. MEDICAL HISTORY : Hypercholesterolemia. Hypertension. Irregular heart beat. Jaundice. Hypercholesterolemia. Hyperte nsion. Thyroid disease. Head trauma. Heart attack. SURGICAL HISTORY : Hysterectomy. Appendectomy. Right ankle surgery. ENCOUNTER: Subsequent ACUITY: 2 days PAIN SCORE: 0/10 LOCATION: Bilateral upper quadrant MEASUREMENTS: LIVER: 20.5 cm length COMMON DUCT: 3 mm RIGHT KIDNEY: 11.8 x 5.1 x 4.2 cm SPLEEN: 11.5 cm length FINDINGS: LIVER: Inhomogeneous echotexture with areas of increased echogenicity suggesting fatty infiltration and poss ible small scattered parenchymal cysts without ductal dilatation. COMMON DUCT: No intraluminal mass or stone visualized. GALLBLADDER: Contains no stones, demonstrates no wall thickening or pericholecystic fluid. PANCREAS: The visualized portions are within normal limits. RIGHT KIDNEY: No hydronephrosis, stone or mass. SPLEEN: No focal lesion. MISCELLANEOUS: Small left-sided effusion. Questionable small amount of free fluid in the left upper abdominal quadra nt CONCLUSION: 1. Heterogeneous hepatic echotexture with areas of increased echogenicity suggesting fatty infiltrati on and scattered punctate parenchymal cysts. 2. Small left-sided effusion with questionable trace ascites in the left upper abdominal quadrant. 3. No gallstones. Alessandro Schreiber MD on August 27, 2016 at 10:32 Board Certified Radiologist. This report was verified electronically.
[2016-08-27] MEDS: cefTRIAXone INJ 1,000 MG in SODIUM CHLORIDE 0.9% INJ 100 ML IV SCH (17:57)
[2016-08-27] MEDS: ENOXAPARIN SODIUM 40 MG/0.4 ML SYRINGE SQ SCH (21:07)
[2016-08-28] VITALS: BP 99/54; PULSE 95; RESP 18; TEMP 97.5; O2SAT 92
[2016-08-28] MEDS: RESP: ALBUTEROL 2.5 MG/IPRATROPIUM 0.5 MG NEB (SCH) NEB ×5 (00:34→16:34)
[2016-08-28 04:00] VITALS: BP 121/66; PULSE 87; RESP 18; TEMP 98.3; O2SAT 94
[2016-08-28] MEDS: SODIUM CHLOR 0.9% 1000 ML INJ 1,000 ML IV SCH (04:30)
[2016-08-28 08:00] VITALS: BP 121/74; PULSE 100; PULSE 83; RESP 20; TEMP 97.5; O2SAT 91
[2016-08-28 08:25] VITALS: O2SAT 98
[2016-08-28 08:59] LABS: ALKALINE PHOSPHATASE 241 U/L (45-117); ALT (GPT) 37 U/L (10-53); ANION GAP 10 MEQ/L (5-15); AST (GOT) 84 U/L (15-37); BLOOD UREA NITROGEN 5 MG/DL (7-18); CHLORIDE 106 MEQ/L (98-107); CREATINE KINASE 488 U/L (26-192); GLOMERULAR FILTRATION RATE 73 ML/MIN (>89); MAGNESIUM 2.5 MG/DL (1.5-2.5); POTASSIUM 3.2 MEQ/L (3.5-5.1); SODIUM (NA) 139 MEQ/L (136-145)
[2016-08-28] MEDS ORDERED: HYDROCORTISONE 10 MG TAB PO SCH (09:00)
[2016-08-28] MEDS: DOCUSATE SODIUM 100 MG CAP PO SCH (09:06)
[2016-08-28] MEDS: guaiFENesin E.R. 600 MG TAB PO SCH (09:06)
[2016-08-28] MEDS: SODIUM CHLORIDE 0.9% FLUSH 10 ML FLUSH IV FLUSH SCH (09:07)
[2016-08-28 09:18] LABS: CKMB 2.7 NG/ML (0.5-3.6)
[2016-08-28 12:00] VITALS: BP 120/62; PULSE 83; RESP 18; TEMP 98.9; O2SAT 92
--- NOTE | 2016-08-28 13:30 | HHI.PR ---
Subjective Remarks This is a pleasant 45 y/o Female with Adrenal Insufficiency, Hypothyroidism, Chronic Steroid Use, who came to ER with worsening fatigue, vomiting and dizziness, recently admitted to the Hospital with Urinary tract infection, cough for the last 2 to 3 weeks, Shortness of breath, on and off chills, no fever, she is followed by Special Police Officer, stopped taking her Hydrocortisone x 1 year and was recently re started 2 months ago, unable to refill her prescription for this medicine not taken the medicine for the last 2 weeks, oxygen as needed, 08/26: CK levels trending down, High LDL levels, has Adrenal Insufficiency. 08/27: Patient seen in the room, stable walking in her bedroom, no complaint, she has GI specialist and software quality specialist as outpatient. 08/28: Seen in her bedroom improving condition, No Nausea, vomit or diarrhea. replacing potassium given 80 meq and will follow potassium level and if within normal limits will discharge Home. Objective Vital Signs Date Time Temp Pulse Resp B/P Pulse Ox O2 Delivery O2 Flow Rate FiO2 08/28/16 09:00 Room Air 08/28/16 08:25 98 Nasal Cannula 21 08/28/16 08:00 97.5 100 20 121/74 91 08/28/16 08:00 83 08/28/16 04:00 98.3 87 18 121/66 94 08/28/16 00:00 97.5 95 18 99/54 92 08/27/16 20:31 95 08/27/16 20:16 94 21 08/27/16 20:00 97.8 94 18 116/58 96 08/27/16 16:00 98.0 87 16 118/63 96 I/O 08/27/16 08/27/16 08/27/16 08/28/16 08/28/16 08/28/16 07:00 15:00 23:00 07:00 15:00 23:00 Intake Total 1695 ml 1040 ml 1040 ml Balance 1695 ml 1040 ml 1040 ml Intake Oral 480 ml 240 ml 240 ml IV Total 1215 ml 800 ml 800 ml # Voids 2 1 2 # Bowel Movements 0 0 0 Result Diagram: 08/26/16 0213 08/28/16 0714 Imaging Last Impressions Liver Ultrasound 08/27/16 0000 Signed Impressions: Service Date/Time: Saturday, August 27, 2016 09:03 - CONCLUSION: 1. Heterogeneous hepatic echotexture with areas of increased echogenicity suggesting fatty infiltration and scattered punctate parenchymal cysts. 2. Small left-sided effusion with questionable trace ascites in the left upper abdominal quadrant. 3. No gallstones. Alessandro Schreiber MD Chest X-Ray 08/25/16 1400 Signed Impressions: Service Date/Time: Thursday, August 25, 2016 14:42 - CONCLUSION: 1. Minimal basilar atelectasis. No acute findings. Stable sclerotic deformity at the left glenoid. Srinivas Menezes MD CT Angiography 08/25/16 0000 Signed Impressions: Service Date/Time: Thursday, August 25, 2016 16:26 - CONCLUSION: 1. Negative for pulmonary embolus. Dependent atelectasis in both lungs. Srinivas Menezes MD Procedures No procedures performed. Other Results Laboratory Tests Test 08/25/16 08/25/16 08/26/16 08/26/16 14:05 15:45 02:13 13:14 Lactic Acid Level 1.2 mmol/L Urine Color ORANGE Urine Turbidity HAZY Urine pH 6.0 Urine Specific [place] 1.029 Urine Protein 30 mg/dL Urine Glucose (UA) NEG mg/dL Urine Ketones 40 mg/dL Urine Occult Blood NEG Urine Nitrite NEG Urine Bilirubin NEG Urine Urobilinogen 8.0 MG/DL Urine Leukocyte Esterase LARGE Urine RBC 6 /hpf Urine WBC 167 /hpf Urine Squamous Epithelial 3 /hpf Cells Urine Mucus MANY /lpf Microscopic Urinalysis Comment CULTURE INDICATED Urine Opiates Screen NEG Urine Barbiturates Screen NEG Urine Amphetamines Screen NEG Urine Benzodiazepines Screen NEG Urine Cocaine Screen NEG Urine Cannabinoids Screen NEG White Blood Count 5.6 TH/MM3 Red Blood Count 3.90 MIL/MM3 Hemoglobin 12.1 GM/DL Hematocrit 35.4 % Mean Corpuscular Volume 90.8 FL Mean Corpuscular Hemoglobin 31.1 PG Mean Corpuscular Hemoglobin 34.3 % Concent Red Cell Distribution Width 17.3 % Platelet Count 207 TH/MM3 Mean Platelet Volume 8.5 FL Neutrophils (%) (Auto) 77.0 % Lymphocytes (%) (Auto) 20.7 % Monocytes (%) (Auto) 1.1 % Eosinophils (%) (Auto) 0.6 % Basophils (%) (Auto) 0.6 % Neutrophils # (Auto) 4.3 TH/MM3 Lymphocytes # (Auto) 1.2 TH/MM3 Monocytes # (Auto) 0.1 TH/MM3 Eosinophils # (Auto) 0.0 TH/MM3 Basophils # (Auto) 0.0 TH/MM3 CBC Comment DIFF FINAL Differential Comment Prothrombin Time 15.1 SEC Prothromb Time International 1.3 RATIO Ratio Hemoglobin A1c 5.8 % Direct Bilirubin 0.7 MG/DL Indirect Bilirubin 0.6 MG/DL Troponin I LESS THAN 0.02 NG/ML Triglycerides Level 165 MG/DL Cholesterol Level 263 MG/DL LDL Cholesterol 215 MG/DL HDL Cholesterol 14.8 MG/DL Cholesterol/HDL Ratio 17.77 RATIO Free Thyroxine 0.13 NG/DL Thyroid Stimulating Hormone 1.520 uIU/ML 3rd Gen Hepatitis A IgM Antibody NEGATIVE Hepatitis B Surface Antigen NEGATIVE Hepatitis B Core IgM Antibody NEGATIVE Hepatitis C Antibody NEGATIVE Test 08/28/16 07:14 Sodium Level 139 MEQ/L Potassium Level 3.2 MEQ/L Chloride Level 106 MEQ/L Carbon Dioxide Level 23.0 MEQ/L Anion Gap 10 MEQ/L Blood Urea Nitrogen 5 MG/DL Creatinine 0.85 MG/DL Estimat Glomerular Filtration 73 ML/MIN Rate Random Glucose 115 MG/DL Calcium Level 8.3 MG/DL Magnesium Level 2.5 MG/DL Total Bilirubin 1.0 MG/DL Aspartate Amino Transf 84 U/L (AST/SGOT) Alanine Aminotransferase 37 U/L (ALT/SGPT) Alkaline Phosphatase 241 U/L Total Creatine Kinase 488 U/L Creatine Kinase MB 2.7 NG/ML Creatine Kinase MB % 0.6 % Total Protein 6.9 GM/DL Albumin 3.2 GM/DL Objective Remarks GENERAL: Obesity, rasmussen facies, No acute distress. SKIN: No rashes, ecchymoses or lesions. Warm and dry. HEAD: Atraumatic. Normocephalic. No temporal or scalp tenderness. EYES: Pupils equal round and reactive. No scleral icterus. No injection or drainage. ENT: Nose without bleeding. Throat with slight erythema. Uvula midline. Airway patent. NECK: Trachea midline. No JVD or lymphadenopathy. Supple, nontender, no meningeal signs. CARDIOVASCULAR: Regular rate and rhythm without murmurs, gallops, or rubs. RESPIRATORY: Decreased breath sounds bilateral, no wheezing or crackles. GASTROINTESTINAL: Abdomen soft, non-tender, nondistended. MUSCULOSKELETAL: Extremities without clubbing, cyanosis, or edema. NEUROLOGICAL: Awake and alert. No Focal deficits. Medications and IVs Current Medications Medications (Trade) Dose Ordered Sig/Eliane Route Start Time Stop Time Status Last Admin (NS Flush) 2 ml UNSCH PRN IV FLUSH 08/25/16 17:45 08/26/16 06:24 (NS Flush) 2 ml BID IV FLUSH 08/25/16 21:00 08/28/16 09:07 (Tylenol) 650 mg Q4H PRN PO 08/25/16 17:45 (Zofran Inj) 4 mg Q6H PRN IVP 08/25/16 17:45 (Dulcolax Supp) 10 mg DAILY PRN RECTAL 08/25/16 17:45 (Colace) 100 mg Q12H PO 08/25/16 21:00 08/28/16 09:06 (Lovenox Inj) 40 mg Q24H SQ 08/25/16 20:00 08/27/16 21:07 Naloxone HCl 0.4 mg 0.4 mg UNSCH PRN IV 08/25/16 17:45 (Rocephin Inj/NS Inj) 100 ml @ 200 mls/hr Q24H IV 08/26/16 16:00 08/27/16 17:57 (Mucinex Er) 600 mg BID PO 08/25/16 21:00 08/28/16 09:06 (Cortef) 20 mg DAILY PO 08/28/16 09:00 08/28/16 09:06 (KCl) 20 meq Q12HR PO 08/28/16 21:00 UNV (KCl) 80 meq ONCE ONCE PO 08/28/16 13:30 08/28/16 13:31 UNV A/P Assessment and Plan 1. Hypoxemic respiratory Failure. Improved. CXR showed minimal basilar atelectasis. No acute findings. Stable sclerotic deformity at the left glenoid CT angiogram negative for pulmonary embolus. Dependent atelectasis in both lungs. on Steroids, Antibiotics, Bronchodilator, Mucolytic and incentive spirometry , Oxygen as needed, 2. Urinary tract infection continue Ceftriaxone, cultures negative. 3. Rhabdomyolysis continue Hydration Improving. 4. Adrenal insufficiency to continue Hydrocortisone 20 mg 5. Hyponatremia Improved. 7. Hypothyroidism continue Levothyroxine. DVT prop SCDs Code Status Full code Discussed Condition With Patient Discharge Planning Discharge later today Mayur Connelly MD Aug 28, 2016 13:30
[2016-08-28] MEDS ORDERED: POTASSIUM CHLORIDE 20 MEQ CONTROLLED RELEASE TAB PO ONE ×2 (14:00→17:45)
[2016-08-28] MEDS: POTASSIUM CHLORIDE 20 MEQ CONTROLLED RELEASE TAB PO SCH ×2 (14:05→15:54)
[2016-08-28] MEDS: cefTRIAXone INJ 1,000 MG in SODIUM CHLORIDE 0.9% INJ 100 ML IV SCH (15:56)
[2016-08-28 16:00] VITALS: BP 130/79; PULSE 85; RESP 18; TEMP 98.5; O2SAT 94
[2016-08-28] MEDS ORDERED: SYMB160A INH (17:27)
[2016-08-28] MEDS ORDERED: HYDRO10 PO (17:27)
[2016-08-28] MEDS ORDERED: POTA20TA5 PO (17:27)
[2016-08-28] MEDS ORDERED: MUCI600T PO (17:27)
--- NOTE | 2016-08-28 17:52 | HHI.DS ---
Discharge Summary Admission Date Aug 25, 2016 at 17:34 Discharge Date: Aug 28, 2016 Admitting Diagnosis hypoxia, rhabdomyolosis, UTI (1) UTI (urinary tract infection) ICD Code: N39.0 Diagnosis: Principal (2) Hypoxia ICD Code: R09.02 Diagnosis: Principal (3) Rhabdomyolysis ICD Code: M62.82 Diagnosis: Principal (4) Hypokalemia Diagnosis: Principal (5) Hyponatremia ICD Code: E87.1 Diagnosis: Principal (6) Adrenal insufficiency, primary ICD Code: E27.1 Diagnosis: Principal (7) Hypotension ICD Code: I95.9 Diagnosis: Principal Procedures No procedures performed. Brief History - From Admission Patient is a 45-year-old female with primary medical history of adrenal insufficiency, hypothyroidism, chronic steroid use who came in to the hospital for complaints of worsening fatigue, vomiting, dizziness. Patient states she was recently admitted to the hospital with urinary tract infection and was sent home after antibiotic treatments but reports her symptoms of dysuria, urinary frequency, and urinary urgency still remains. She reports that she has a cough approximately about 2-3 weeks, associated with shortness of breath with exertion, nausea, mucous production described as white small amount and some blood tinge, states possibly from coughing too much. She also reports feeling weak and tired approximately about the same time, with on and off chills, without fever. However yesterday, patient went to work and unable to finish work that she needs to go back home because she is not feeling well. States that she has nausea, vomited 2, fatigue, weakness, shortness of breath. Today, her condition did not improve and seemed to have worsened that she came in for further evaluation. Patient states she has adrenal insufficiency and on chronic use of hydrocortisone followed by her e d tech. Patient was able to stop taking the hydrocortisone 1 year and was recently restarted about 2 months ago. However, patient unable to refill her prescription for hydrocortisone and states she has an appointment with her e d tech. She has not taken the medication 2 weeks. Patient reports shortness of breath and dyspnea on exertion, relieved by resting. On 2 L nasal cannula O2 sat on to monitor 92-95%. Patient denies any recent surgery, trouble, hemoptysis, history of DVT, pulmonary embolism, edema. Complaints of dysuria, urinary frequency. Denies hematuria, abdominal cramping. Denies pain and discomfort. Denies chest pain, palpitations, headaches. Denies fevers, diarrhea. CBC/BMP: 08/26/16 0213 08/28/16 1656 Significant Findings Laboratory Tests Test 08/25/16 08/26/16 08/27/16 08/28/16 20:53 02:13 06:00 07:14 Total Creatine Kinase 1388 U/L 1166 U/L 488 U/L (26-192) (26-192) (26-192) Creatine Kinase MB 5.2 NG/ML (0.5-3.6) Troponin I LESS THAN 0.02 LESS THAN 0.02 NG/ML NG/ML (0.02-0.05) (0.02-0.05) Red Blood Count 3.90 MIL/MM3 (4.00-5.30) Red Cell Distribution Width 17.3 % (11.6-17.2) Neutrophils (%) (Auto) 77.0 % (16.0-70.0) Prothrombin Time 15.1 SEC (9.8-11.6) Total Bilirubin 1.3 MG/DL (0.2-1.0) Direct Bilirubin 0.7 MG/DL (0.0-0.2) Aspartate Amino Transf 121 U/L (15-37) 84 U/L (15-37) (AST/SGOT) Alkaline Phosphatase 281 U/L 241 U/L (45-117) (45-117) Albumin 3.2 GM/DL 3.2 GM/DL (3.4-5.0) (3.4-5.0) Triglycerides Level 165 MG/DL (42-150) Cholesterol Level 263 MG/DL (120-200) LDL Cholesterol 215 MG/DL (0-99) HDL Cholesterol 14.8 MG/DL (40.0-60.0) Free Thyroxine 0.13 NG/DL (0.76-1.46) Chloride Level 109 MEQ/L (98-107) Carbon Dioxide Level 19.6 MEQ/L (21.0-32.0) Blood Urea Nitrogen 6 MG/DL (7-18) 5 MG/DL (7-18) Estimat Glomerular Filtration 72 ML/MIN (>89) 73 ML/MIN (>89) Rate Random Glucose 144 MG/DL 115 MG/DL (74-106) (74-106) Calcium Level 8.2 MG/DL 8.3 MG/DL (8.5-10.1) (8.5-10.1) Potassium Level 3.2 MEQ/L (3.5-5.1) Test 08/28/16 16:56 Potassium Level 3.4 MEQ/L (3.5-5.1) Imaging Last Impressions Liver Ultrasound 08/27/16 0000 Signed Impressions: Service Date/Time: Saturday, August 27, 2016 09:03 - CONCLUSION: 1. Heterogeneous hepatic echotexture with areas of increased echogenicity suggesting fatty infiltration and scattered punctate parenchymal cysts. 2. Small left-sided effusion with questionable trace ascites in the left upper abdominal quadrant. 3. No gallstones. Alessandro Schreiber MD Chest X-Ray 08/25/16 1400 Signed Impressions: Service Date/Time: Thursday, August 25, 2016 14:42 - CONCLUSION: 1. Minimal basilar atelectasis. No acute findings. Stable sclerotic deformity at the left glenoid. Srinivas Menezes MD CT Angiography 08/25/16 0000 Signed Impressions: Service Date/Time: Thursday, August 25, 2016 16:26 - CONCLUSION: 1. Negative for pulmonary embolus. Dependent atelectasis in both lungs. Srinivas Menezes MD PE at Discharge GENERAL: Obesity, rasmussen facies, No acute distress. SKIN: No rashes, ecchymoses or lesions. Warm and dry. HEAD: Atraumatic. Normocephalic. No temporal or scalp tenderness. EYES: Pupils equal round and reactive. No scleral icterus. No injection or drainage. ENT: Nose without bleeding. Throat with slight erythema. Uvula midline. Airway patent. NECK: Trachea midline. No JVD or lymphadenopathy. Supple, nontender, no meningeal signs. CARDIOVASCULAR: Regular rate and rhythm without murmurs, gallops, or rubs. RESPIRATORY: Decreased breath sounds bilateral, no wheezing or crackles. GASTROINTESTINAL: Abdomen soft, non-tender, nondistended. MUSCULOSKELETAL: Extremities without clubbing, cyanosis, or edema. NEUROLOGICAL: Awake and alert. No Focal deficits. Hospital Course This is a pleasant 45 y/o Female with Adrenal Insufficiency, Hypothyroidism, Chronic Steroid Use, who came to ER with worsening fatigue, vomiting and dizziness, recently admitted to the Hospital with Urinary tract infection, cough for the last 2 to 3 weeks, Shortness of breath, on and off chills, no fever, she is followed by Spiritual Advisor, stopped taking her Hydrocortisone x 1 year and was recently re started 2 months ago, unable to refill her prescription for this medicine not taken the medicine for the last 2 weeks, oxygen as needed, 08/26: CK levels trending down, High LDL levels, has Adrenal Insufficiency. 08/27: Patient seen in the room, stable walking in her bedroom, no complaint, she has GI specialist and search engine optimization specialist as outpatient. 08/28: Seen in her bedroom improving condition, No Nausea, vomit or diarrhea. replacing potassium given 80 meq, new Potassium level was 3.4 but was taken near the last dose, will cover with 40 meq now and continue 20 meq BID twice a day for ten days will need to follow with PCP and follow Electrolytes. Assessment and Plan 1. Hypoxemic respiratory Failure. Improved. CXR showed minimal basilar atelectasis. No acute findings. Stable sclerotic deformity at the left glenoid CT angiogram negative for pulmonary embolus. Dependent atelectasis in both lungs. on Steroids, Antibiotics, Bronchodilator, Mucolytic and incentive spirometry , Oxygen as needed, Improved will continue Symbicort twice a day. 2. Steroid Withdrawal improved with Steroids and will continue Home medicines, was explained at this time to the patient and her relatives about this issue, she can't be without the medicine, multiple questions answered she has search engine optimization specialist as outpatient. 3. Rhabdomyolysis continue Hydration Improving. she will continue plenty of fluid intake, 4. Adrenal insufficiency to continue Hydrocortisone 20 mg, given new script. 5. Hyponatremia Improved. 7. Hypothyroidism continue Levothyroxine. 8. Urinary tract infection continue Ceftriaxone, cultures negative. no further antibiotics. DVT prop SCDs Code Status Full code Discussed Condition With Patient and three relatives in the room. all questions answered to the best of my abilities. Discharge Planning Discharge Home today Pt Condition on Discharge: Good Discharge Disposition: Discharge Home Discharge Time: > 30 minutes Discharge Instructions DIET: Follow Instructions for: As Tolerated, No Restrictions Activities you can perform: Regular-No Restrictions Mayur Connelly MD Aug 28, 2016 17:52
[2016-08-28] MEDS ORDERED: POTASSIUM CHLORIDE 20 MEQ CONTROLLED RELEASE TAB PO SCH (21:00)
== END 2016-08-28 19:00 | disposition home or self-care (01) | DRG 189 ==
LOC: NEPC 13:29 → NEDA 17:34 → N04B 19:14
PROVIDERS: ADMIT Internal Medicine; ATTEND Internal Medicine
DX: J96.91 Respiratory failure, unspecified with hypoxia (principal); J98.11 Atelectasis; I95.9 Hypotension, unspecified; M62.82 Rhabdomyolysis; E87.1 Hypo-osmolality and hyponatremia; E27.40 Unspecified adrenocortical insufficiency; N39.0 Urinary tract infection, site not specified; E03.9 Hypothyroidism, unspecified; I25.2 Old myocardial infarction; I10 Essential (primary) hypertension; E78.00 Pure hypercholesterolemia, unspecified; R39.15 Urgency of urination; R35.0 Frequency of micturition; E87.6 Hypokalemia; Z79.52 Long term (current) use of systemic steroids; K76.9 Liver disease, unspecified; E78.5 Hyperlipidemia, unspecified
CPT/HCPCS: 71010; 71275; 76705; 80048; 80053; 80061; 80074; 80076; 80307; 81001; 82550; 82552; 83036; 83605; 83735; 84132; 84439; 84443; 84484; 84703; 85025; 85610; 87040; 87086; 87804; 93005; 94150; 94640; 94664; 96374; J0696; J1650; J2920; J2930; J3480; J7030; Q9967

== ENCOUNTER → 2017-05-10 | Outpatient (CLI) | payer OTHER ==
[~2017-05-10] MED LIST changes: -CEPH-460 PO; -CORT20TA PO; +HYDRO10 PO; +MUCI600T PO; +POTA20TA5 PO; +SYMB160A INH
--- NOTE | 2017-05-10 10:37 | RADRPT ---
EXAM DATE/TIME: 05/10/2017 09:12 [facility] COMPARISON: No previous studies available for comparison. INDICATIONS : Increased lab values. MEDICAL HISTORY : Hypercholesterolemia. Hypertension. Irregular heart beat. Jaundice. Thyroid disease. Head trauma. Myocardial infarction. SURGICAL HISTORY : Hysterectomy. Appendectomy. Right ankle surgery. ENCOUNTER: Subsequent ACUITY: 7-11 months PAIN SCORE: 2/10 LOCATION: Abdomen. MEASUREMENTS: LIVER: 22.5 cm length COMMON DUCT: 6 mm RIGHT KIDNEY: 10.2 x 4.9 x 3.6 cm LEFT KIDNEY: 10.5 x 5.2 x 5.3 cm SPLEEN: 11.4 cm length AORTA: 2.3cm maximal FINDINGS: LIVER: Diffusely echogenic enlarged liver without focal mass or intrapelvic ductal dilatation. COMMON DUCT: No intraluminal mass or stone visualized. GALLBLADDER: Echogenic layering debris in the gallbladder consistent with sludge. Gallbladder is otherwise unremar kable without bladder wall thickening or pericholecystic fluid. No sonographic Hoffmann's sign. PANCREAS: The visualized portions are within normal limits. RIGHT KIDNEY: No hydronephrosis, stone or mass. LEFT KIDNEY: No hydronephrosis, stone or mass. SPLEEN: No focal lesion. AORTA: Non aneurysmal. IVC: Within normal limits. CONCLUSION: 1. Hepatomegaly with diffuse increased echogenicity consistent with hepatic steatosis versus medical liver disease. 2. Small amount of gallbladder sludge. Otherwise, unremarkable sonographic appearance of the gallblad yuri. Huber Restrepo MD on May 10, 2017 at 10:32 Board Certified Radiologist. This report was verified electronically.
== END ==
LOC: HRAD 08:48
PROVIDERS: ATTEND Internal Medicine
DX: R74.8 Abnormal levels of other serum enzymes (principal)
CPT/HCPCS: 76700